=== PATIENT | male | born 1955 | race Caucasian/White ===

== ENCOUNTER → 2016-09-28 | Outpatient (CLI) | payer OTHER ==
[~2016-09-28] MED LIST: ASPIRIN EC81 MG PO; CARDIZEM CD)(T180 MG PO; CATAPRES0.2 MG PO; CHLORTHALIDONE50 MG PO; CRESTOR20 MG PO; ENDOCET 10-3251 EACH PO; MULTI VITAMIN1 EACH PO; NEURONTIN600 MG PO; NORVASC5 MG PO; NUVIGIL200 MG PO; NUVIGIL250 MG PO; OCTAGAM IV; OXYGEN M-15 INH; PERCOCET 5-3251 EACH PO; PLAVIX75 MG PO; PRILOSEC20 MG PO; PROVENTIL OR V6.7 GM INH; SILDENAFIL20 MG PO; TESTERONE TOP; TOPROL XL25 MG PO; VASOTEC20 MG PO; ZANAFLEX4 MG PO; ZOLOFT100 M1 PO
== END | disposition disaster alternative care site (69) ==
LOC: LFPA 10:31
DX: M10.9 Gout, unspecified (principal)

== ENCOUNTER → 2017-04-02 | Outpatient (CLI) | payer OTHER | LOC: LFPA 16:43 | DX: E29.1 Testicular hypofunction (principal) ==

== ENCOUNTER → 2017-04-09 | Outpatient (CLI) | payer OTHER | LOC: LKESC 15:38 | DX: L72.0 Epidermal cyst (principal) ==